=== PATIENT | female | born 1945 | race Caucasian/White ===

== ENCOUNTER 2024-10-31 13:32 | Outpatient (CLI) | payer MEDICARE | END 2024-10-31 13:33 | disposition home or self-care (01) | LOC: CSHULT 13:32 | PROVIDERS: ATTEND Student in an Organized Health Care Education/Training Program | DX: I35.0 Nonrheumatic aortic (valve) stenosis (principal); I51.7 Cardiomegaly; I70.0 Atherosclerosis of aorta | CPT/HCPCS: 93306 ==